=== PATIENT | male | born 1990 | race Two or more races ===

== ENCOUNTER 2016-10-03 08:33 | Emergency (ER) | payer MEDICAID, OTHER ==
[~2016-10-03] VITALS: Ht 172.7 cm; Wt 100.3 kg
[~2016-10-03 08:33] MED LIST: ONDA4TAB7 PO; OXYC-223 PO
[2016-10-03 08:35] VITALS: BP 113/73
[2016-10-03] MEDS ORDERED: ONDANSETRON 2MG/ML, 2ML IVPush ONE (10:00)
[2016-10-03] MEDS ORDERED: SODIUM CHLORIDE FLUSH 10ML SYR IVF ONE (10:00)
[2016-10-03] MEDS ORDERED: SODIUM CHLORIDE 0.9% 1,000ML IV ONE (10:00)
[2016-10-03] MEDS ORDERED: TAMSULOSIN 0.4 MG CAP.ER.24H PO ONE (10:00)
[2016-10-03] MEDS ORDERED: MORPHINE SULFATE 4 MG/ML, 1ML IVPush PRN (10:00)
[2016-10-03] MEDS ORDERED: KETOROLAC 30 MG/1 ML IVPush ONE (10:00)
== END 2016-10-03 10:46 | disposition home or self-care (01) ==
LOC: ED 09:13
DX: J20.9 Acute bronchitis, unspecified (principal)
CPT/HCPCS: 71020; 74000; 99284